=== PATIENT | male | born 1955 | race Caucasian/White ===

== ENCOUNTER 2019-04-11 15:32 | Observation (INO) | payer MEDICARE, MEDICAID ==
[2019-04-11] MEDS ORDERED: Sodium Chloride 0.9% 10 ML Syringe FLUSH PRN (15:44)
[2019-04-11] MEDS ORDERED: Atropine 0.1 MG/ML 10 ML Syringe IVPUSH PRN (15:53)
[2019-04-11] MEDS ORDERED: EPINEPHrine 1:10,000 1 MG/10 ML Syringe IVPUSH PRN (15:53)
[2019-04-11] MEDS ORDERED: Nitroglycerin 0.4 MG Tab.SL SL PRN (15:53)
[2019-04-11] MEDS ORDERED: Lidocaine 2% 100 MG/5 ML Syringe IVPUSH PRN (15:53)
[2019-04-11] MEDS ORDERED: Acetaminophen 500 MG Tab PO PRN (16:53)
[2019-04-11] MEDS ORDERED: traMADol 50 MG Tab PO PRN (16:53)
[2019-04-11] MEDS ORDERED: ClonazePAM 0.5 MG Tab PO PRN (16:53)
[2019-04-11] MEDS: atorvaSTATin 10 MG Tab PO SCH (20:33)
[2019-04-12 08:43] LABS: ANION GAP 15.3 mmol/L (5-15); CHLORIDE,CL 104 mmol/L (98-115); SODIUM,NA 139 mmol/L (136-145)
[2019-04-12] MEDS: ARIPiprazole 5 MG Tab PO SCH (09:13)
[2019-04-12] MEDS: Escitalopram 10 MG Tab PO SCH (09:14)
[2019-04-12] MEDS: Aspirin 81 MG Tab.EC PO SCH (09:14)
[2019-04-12] MEDS: metFORMIN 500 MG Tab PO SCH (09:14)
[2019-04-12] MEDS: Magnesium Hydroxide 400 MG/5 ML Susp 30 ML Cup PO PRN (09:26)
[2019-04-12 11:32] VITALS: BP 123/73
--- NOTE | 2019-04-12 11:46 | PCM.DCSUM1 ---
Discharge Summary - Hospital Course Free Text/Narrative:: Pt was admitted to the hospital with significant bradycardia, hypotension and hyperkalemia. He had BP of 110/64, heart rate 38-44 in the clinic while on hctz 12.5 mg daily , Metoprolol succinate 25 mg daily, amlodipine 10 mg daily, and lisinopril 40 mg daily. His antihypertensives were held and he was admitted to the hospital for observation. Since admission his heart rate has continued 44-51, BPs have been stable at 124 /64 with one reading of 94/67 at 7 am today. On discharge his BP was 123/73 with heart rate of 51. He denies any light headedness, dizziness, shortness of breath, palpitations, chest pain or edema. Hyperkalemia: Potassium was 5.9 on 04/10, 5.5 on 04/11. His lisinopril was held and K is now WNL at 4.7. Creatinine, GFR and BUN are all WNL on discharge. Pt has a history of anxiety and depression managed with abilify 5 mg daily, Clonazepam 0.5 mg at HS PRN and [id number] mg daily. He has arthritis and chronic low back pain managed with tramadol and meloxicam. Pt has hyperlipidemia managed with atorvastatin. Pt is to follow up in the clinic on Sunday, 04/15 for evaluation related to bradycardia, hypotension and hyperkalemia. His BPs were stable on discharge after being off of amlodipine, hctz, lisinopril and metoprolol for 24 hours. Potassium was WNL after being off of lisinopril 24 hours. He did not want to stay longer and was discharged with instructions for low potassium diet and to report any symptoms. Diagnosis: Stroke: No - Discharge Data Discharge Date: 04/12/19 Discharge Disposition: Home, Self-Care 01 Condition: Good - Discharge Diagnosis/Problem(s) (1) Hyperkalemia SNOMED Code(s): 65175421 ICD Code: E87.5 - HYPERKALEMIA Status: Acute Priority: Medium Current Visit: Yes - Patient Instructions Diet, Other: low potassium diet Activity: As Tolerated Driving: Do Not Drive Showering/Bathing: May Shower Other/Special Instructions: light headedness or dizziness - Discharge Plan *PRESCRIPTION DRUG MONITORING PROGRAM REVIEWED*: Yes (reviewed in Álvarez chart) *COPY OF PRESCRIPTION DRUG MONITORING REPORT IN PATIENT DASHA: No Home Medications: Home Meds ARIPiprazole [Abilify] 5 mg PO DAILY 04/11/19 [History] Acetaminophen 1,000 mg PO Q4HR PRN 04/11/19 [History] Aspirin [Halfprin] 81 mg PO DAILY 04/11/19 [History] ClonazePAM [KlonoPIN] 0.5 mg PO BEDTIME PRN 04/11/19 [History] Escitalopram [Lexapro] 20 mg PO DAILY 04/11/19 [History] Meloxicam [Mobic] 15 mg PO DAILY 04/11/19 [History] atorvaSTATin [Lipitor] 20 mg PO BEDTIME 04/11/19 [History] metFORMIN [Glucophage] 500 mg PO DAILY 04/11/19 [History] traMADol [Ultram] 50 mg PO Q6H PRN 04/11/19 [History] Patient Handouts: Hyperkalemia, [id number], Bradycardia, Adult Referrals: Eve Lancaster PA-C [Physician Staff Appraiser] - 04/15/19 (Return on Sunday to re evaluate re: antihypertensives and bradycardia) - Discharge Summary/Plan Comment DC Time >30 min.: Yes Discharge Summary/Plan Comment: Pt is to return to clinic on Sunday for re evaluation re: restarting his antihypertensive medications - General Info Date of Service: 04/12/19 Admission Dx/Problem (Free Text: bradycardia, hypokalemia, hypotension Subjective Update: Pt is anxious to go home. He states he is not doing anything here that he could not do at home. He denies light headedness, dizziness, shortness of breath, Chest pain, palpitations. ROS negative except low back pain. Functional Status: Reports: Pain Controlled (Chronic back pain managed with meloxicam and tramadol) - Review of Systems General: Reports: No Symptoms HEENT: Reports: No Symptoms Pulmonary: Reports: No Symptoms Cardiovascular: Reports: No Symptoms Gastrointestinal: Reports: No Symptoms Musculoskeletal: Reports: Back Pain (chronic, managed to pt's satisfaction) Psychiatric: Reports: No Symptoms - Patient Data Vitals - Most Recent: Last Vital Signs Temp 98.7 F 04/12/19 06:50 Pulse 47 L 04/12/19 06:50 Resp 20 04/12/19 06:50 BP 94/67 04/12/19 06:50 Pulse Ox 94 L 04/12/19 06:50 Weight - Most Recent: 197 lb 8 oz I&O - Last 24 hours: Intake & Output 04/11/19 04/12/19 04/12/19 22:59 06:59 14:59 Intake Total 1000 600 Balance 1000 600 Lab Results - Last 24 hrs: Laboratory Results - last 24 hr 04/11/19 04/11/19 04/12/19 Range/Units 16:05 16:05 07:40 WBC 9.24 (5.00-10.00) 10^3/uL RBC 3.97 L (4.50-6.00) 10^6/uL Hgb 14.0 (13.0-17.0) g/dL Hct 41.1 (40.0-52.0) % MCV 103.5 H (82.0-92.0) fL MCH 35.3 H (27.0-31.0) pg MCHC 34.1 (32.0-36.0) g/dL RDW 12.5 (11.5-14.5) % Plt Count 396 (150-400) 10^3/uL MPV 9.9 (7.4-10.4) fL Immature Gran % (Auto) 0.1 (0.0-5.0) % Neut % (Auto) 65.9 (50.0-70.0) % Lymph % (Auto) 21.9 (20.0-40.0) % [place] % (Auto) 7.0 (2.0-8.0) % Eos % (Auto) 4.7 H (1.0-3.0) % Baso % (Auto) 0.4 (0.0-1.0) % Immature Gran # (Auto) 0.01 (0.00-0.50) 10^3/uL Neut # (Auto) 6.09 (2.50-7.00) 10^3/uL Lymph # (Auto) 2.02 (1.00-4.00) 10^3/uL [place] # (Auto) 0.65 (0.10-0.80) 10^3/uL Eos # (Auto) 0.43 H (0.10-0.30) 10^3/uL Baso # (Auto) 0.04 (0.00-0.10) 10^3/uL Sodium 139 (136-145) mmol/L Potassium 4.7 (3.3-5.3) mmol/L Chloride 104 (98-115) mmol/L Carbon Dioxide 24.4 (21.0-32.0) mmol/L Anion Gap 15.3 H (5-15) mmol/L BUN 22 (6-25) mg/dL Creatinine 0.93 (0.51-1.17) mg/dL Est Cr Clr Drug Dosing 80.24 mL/min Estimated GFR (MDRD) > 60 mL/min Glucose 96 (75 - 99) mg/dL Calcium 8.9 (8.7-10.3) mg/dL Total Bilirubin 0.4 (0.2-1.0) mg/dL AST 24 (15-37) U/L ALT 41 (12-78) U/L Alkaline Phosphatase 137 H (46-116) IU/L Troponin I 0.04 (0.00-0.070) ng/mL Total Protein 6.9 (6.4-8.2) g/dL Albumin 3.66 (3.00-4.80) g/dL Med Orders - Current: Current Medications Acetaminophen (Tylenol Extra Strength) 1,000 mg PO Q4HR PRN PRN Reason: Pain Aripiprazole (Abilify) 5 mg PO DAILY [facility] Last Admin: 04/12/19 09:13 Dose: 5 mg Aspirin (Halfprin) 81 mg PO DAILY [facility] Last Admin: 04/12/19 09:14 Dose: 81 mg Atorvastatin Calcium (Lipitor) 20 mg PO BEDTIME [facility] Last Admin: 04/11/19 20:33 Dose: 20 mg Atropine Sulfate (Atropine 0.1 Mg/Ml) 0 mg IVPUSH ASDIRECTED PRN PRN Reason: Heart Clonazepam (Klonopin) 0.5 mg PO BEDTIME PRN PRN Reason: Anxiety Epinephrine HCl (Epinephrine 1:10,000) 1 mg IVPUSH ASDIRECTED PRN PRN Reason: Heart Escitalopram Oxalate (Lexapro) 20 mg PO DAILY [facility] Last Admin: 04/12/19 09:14 Dose: 20 mg Lidocaine HCl (Xylocaine 2%) 0 mg IVPUSH ASDIRECTED PRN PRN Reason: Heart Magnesium Hydroxide (Milk Of Magnesia) 30 ml PO BEDTIME PRN PRN Reason: Constipation Last Admin: 04/12/19 09:26 Dose: 30 ml Meloxicam (Mobic) 15 mg PO DAILY [facility] Last Admin: 04/12/19 09:14 Dose: 15 mg Metformin HCl (Glucophage) 500 mg PO DAILY [facility] Last Admin: 04/12/19 09:14 Dose: 500 mg Nitroglycerin (Nitrostat) 0.4 mg SL ASDIRECTED PRN PRN Reason: Heart Sodium Chloride (Saline Flush) 10 ml FLUSH Q8HR PRN PRN Reason: keep vein open Tramadol HCl (Ultram) 50 mg PO Q6H PRN PRN Reason: Pain - Exam General: Reports: Alert, Oriented, Cooperative, No Acute Distress Neck: Reports: Supple. Denies: Lymphadenopathy Lungs: Reports: Clear to Auscultation Cardiovascular: Reports: Regular Rhythm, Other (heart rate 48) GI/Abdominal Exam: Soft, Non-Tender Extremities: Normal Inspection, No Pedal Edema Psy/Mental Status: Reports: Alert, Normal Affect, Normal Mood
== END 2019-04-12 11:55 | disposition home or self-care (01) ==
LOC: KA.MS 15:32
PROVIDERS: ADMIT Physician Assistant Medical; ATTEND Nurse Practitioner Family
DX: I10 Essential (primary) hypertension (principal); R00.1 Bradycardia, unspecified; E87.5 Hyperkalemia; E78.5 Hyperlipidemia, unspecified; F41.8 Other specified anxiety disorders; M16.11 Unilateral primary osteoarthritis, right hip; M54.16 Radiculopathy, lumbar region; G89.29 Other chronic pain; Z79.82 Long term (current) use of aspirin; Z79.84 Long term (current) use of oral hypoglycemic drugs; Z79.1 Long term (current) use of non-steroidal anti-inflammatories (NSAID); Z79.899 Other long term (current) drug therapy; Z88.8 Allergy status to other drugs, medicaments and biological substances; Z87.891 Personal history of nicotine dependence; Z85.46 Personal history of malignant neoplasm of prostate
CPT/HCPCS: 36415; 80053; 84484; 85025; A9270-GY; G0378; G0379

== ENCOUNTER 2019-06-01 15:15 | Emergency (ER) | payer MEDICARE, MEDICAID ==
[2019-06-01] MEDS ORDERED: Sodium Chloride 0.9% 10 ML Syringe FLUSH PRN (15:26)
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
[2019-06-01] MEDS ORDERED: Sodium Chloride 0.9% 1,000 ML IV ONE (16:26)
[2019-06-01] MEDS ORDERED: Sodium Chloride 0.9% 1,000 ML ONE (16:28)
[2019-06-01 16:31] LABS: ANION GAP 14.6 mmol/L (5-15); CHLORIDE,CL 107 mmol/L (98-115); SODIUM,NA 144 mmol/L (136-145)
--- NOTE | 2019-06-01 16:56 | CR ---
[id number] RAD/RAD Lumbar Spine 2-3V Exam: RAD Lumbar Spine 2-3V Indication:LEG WEAKNESS, CHRONIC LUMBAR PROBLEMS. Comparison: No prior imaging for comparison. Discussion: Advanced changes of spondylosis with thoracic dextroconvexity. No acute findings. Impression: Advanced lumbar spondylosis. Gilbert Bar MD 06/01/19 [id number] Thank you for allowing us to participate in the care of your patient.
== END 2019-06-01 18:04 | disposition home or self-care (01) ==
LOC: KA.ED 15:15
DX: M51.36 Other intervertebral disc degeneration, lumbar region (principal); R29.91 Unspecified symptoms and signs involving the musculoskeletal system; E78.00 Pure hypercholesterolemia, unspecified; I10 Essential (primary) hypertension; F17.210 Nicotine dependence, cigarettes, uncomplicated; Z88.8 Allergy status to other drugs, medicaments and biological substances; Z79.899 Other long term (current) drug therapy; Z79.84 Long term (current) use of oral hypoglycemic drugs; Z95.4 Presence of other heart-valve replacement
CPT/HCPCS: 36415; 72100; 80053; 84443; 85025; 96360; 99285; J7030; 99284

== ENCOUNTER 2019-07-17 18:19 | Emergency (ER) | payer MEDICARE, MEDICAID ==
--- NOTE | 2019-07-17 18:59 | EDM.PDOC ---
ED HPI GENERAL MEDICAL PROBLEM - General Chief Complaint: General Stated Complaint: BACK PAIN, WEAKNESS Time Seen by Provider: 07/17/19 18:27 Source of Information: Reports: Patient, Provider (Dr. Mak ) History Limitations: Reports: No Limitations - History of Present Illness INITIAL COMMENTS - FREE TEXT/NARRATIVE: Patient presents with weakness in back and legs. He says this all started more than ten years ago. There was no injury or accident. He had an MRI back then and isn't aware of a diagnosis of MS. He recently had another MRI, and an EMG 2 -3 weeks ago. He is scheduled to see a neurologist in [place] in early July. Dr. Mak called with FYI that he was coming to ER and she had been told by their accounts receivable executive that patient was told, by Dr. Mckeon, to come today to clinic for check since he was having more rapid progression of his leg weakness. Closing time at clinic, so now coming to ER. 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 Patient tells me that the weakness has been progressing to the point that he needed a walker for ambulation starting 3 months ago. He thinks it has worsened a little over the last 6 weeks also. He tried PT 4-6 weeks ago but quit because it wasn't helping. - Related Data Allergies Allergy/AdvReac Type Severity Reaction Status Date / Time aspirin Allergy Rash Verified 06/01/19 15:28 Home Meds: Home Meds ARIPiprazole [Abilify] 5 mg PO DAILY 04/11/19 [History] Acetaminophen 1,000 mg PO Q4HR PRN 04/11/19 [History] Aspirin [Halfprin] 81 mg PO DAILY 04/11/19 [History] ClonazePAM [KlonoPIN] 0.5 mg PO BEDTIME PRN 04/11/19 [History] Escitalopram [Lexapro] 20 mg PO DAILY 04/11/19 [History] Meloxicam [Mobic] 15 mg PO DAILY 04/11/19 [History] atorvaSTATin [Lipitor] 20 mg PO BEDTIME 04/11/19 [History] metFORMIN [Glucophage] 500 mg PO DAILY 04/11/19 [History] traMADol [Ultram] 50 mg PO Q6H PRN 04/11/19 [History] amLODIPine Besylate [Amlodipine Besylate] 5 mg PO DAILY 06/01/19 [History] Past Medical History HEENT History: Reports: None Cardiovascular History: Reports: Arrhythmia, Heart Murmur, Heart Valve Replacement, High Cholesterol, Hypertension Gastrointestinal History: Reports: Chronic Constipation Genitourinary History: Reports: Prostate Disorder Psychiatric History: Reports: Anxiety, Depression, Emotional Problems, Panic Attack Oncologic (Cancer) History: Reports: Prostate - Infectious Disease History Infectious Disease History: Reports: Chicken Pox, Measles, Mumps - Past Surgical History HEENT Surgical History: Reports: Tonsillectomy Cardiovascular Surgical History: Reports: Valve Replacement GI Surgical History: Reports: Appendectomy, Colonoscopy Male Surgical History: Reports: Prostatectomy Social & Family History - Family History Family Medical History: Noncontributory - Caffeine Use Caffeine Use: Reports: Coffee, Soda ED ROS GENERAL - Review of Systems Review Of Systems: See Below Constitutional: Reports: Weakness (chronic bilat leg). Denies: Fever, Chills, Malaise, Diaphoresis HEENT: Reports: No Symptoms Respiratory: Denies: Shortness of Breath, Cough Cardiovascular: Reports: No Symptoms Endocrine: Reports: No Symptoms GI/Abdominal: Reports: No Symptoms : Reports: No Symptoms Musculoskeletal: Denies: Neck Pain, Shoulder Pain, Arm Pain Skin: Denies: Cyanosis, Jaundice, Mottled, Pallor, Diaphoresis Neurological: Reports: Difficulty Walking (chronic). Denies: Confusion, Dizziness, Headache, Numbness, Seizure, Syncope, Trouble Speaking Psychiatric: Denies: Agitation, Anxiety, Confusion ED EXAM, GENERAL - Physical Exam Exam: See Below Exam Limited By: No Limitations General Appearance: Alert, WD/WN, No Apparent Distress Eye Exam: Bilateral Eye: EOMI, Normal Inspection, PERRL Ears: Normal External Exam, Hearing Grossly Normal Nose: Normal Inspection, No Blood Throat/Mouth: Normal Inspection, Normal Lips, Normal Voice, No Airway Compromise Head: Atraumatic, Normocephalic Neck: Normal Inspection, Full Range of Motion Respiratory/Chest: No Respiratory Distress, Lungs Clear, Normal Breath Sounds, No Accessory Muscle Use Cardiovascular: Regular Rate, Rhythm, No Murmur Extremities: Normal Range of Motion, Non-Tender, Other (Left foot is 4/5 with plantar flexion and dorsiflexion; this has been chronic for the last ten years per patient.) Neurological: Alert, Oriented, Normal Cognition, No Motor/Sensory Deficits, Other (couldn't elicit bilat patellar reflexes) Psychiatric: Normal Affect, Normal Mood Skin Exam: Warm, Dry, Intact, Normal Color, No Rash Course - Re-Assessments/Exams Free Text/Narrative Re-Assessment/Exam: 07/17/19 19:18 Discussed findings with a call back to Dr. Mak since she had called to notify me of the patient coming. Since this is not acute, but chronic, will continue with the planned neuro appointment and follow up with Dr. Mckeon next week. Discussed findings and plan with patient. He isn't sure where the confusion occurred because he hasn't had an acute change he says. Patient stable at discharge and understands the plan as discussed. Departure - Departure Time of Disposition: 19:08 Disposition: Home, Self-Care 01 Condition: Good Clinical Impression: Leg weakness, bilateral - Discharge Information Referrals: Franco Holbrook MD [Primary Care Provider] - Additional Instructions: 1. Keep your appointment with Dr. Mckeon next week. 2. Make sure to see the neurologist in two weeks as scheduled. 3. If you notice acute worsening get rechecked either in clinic or ER [facility].
== END 2019-07-17 19:20 | disposition home or self-care (01) ==
LOC: KA.ED 18:19
DX: M62.81 Muscle weakness (generalized) (principal); F41.9 Anxiety disorder, unspecified; F32.9 Major depressive disorder, single episode, unspecified; E78.00 Pure hypercholesterolemia, unspecified; I10 Essential (primary) hypertension; Z88.6 Allergy status to analgesic agent; Z79.899 Other long term (current) drug therapy; Z79.82 Long term (current) use of aspirin
CPT/HCPCS: 99283

== ENCOUNTER 2019-08-15 08:54 | Inpatient (IN) | payer MEDICARE, MEDICAID ==
[2019-08-15] MEDS ORDERED: traMADol 50 MG Tab PO ONE (15:43)
[2019-08-15] MEDS: Acetaminophen 500 MG Tab PO PRN (20:01)
[2019-08-15] MEDS: atorvaSTATin 10 MG Tab PO SCH (20:19)
[2019-08-16] MEDS: traMADol 50 MG Tab PO PRN ×3 (00:44→20:23)
[2019-08-16] MEDS: Aspirin 81 MG Tab.EC PO SCH (08:55)
[2019-08-16] MEDS: Escitalopram 10 MG Tab PO SCH (08:56)
[2019-08-16] MEDS: amLODIPine 5 MG Tab PO SCH (08:57)
[2019-08-16] MEDS: metFORMIN 500 MG Tab PO SCH (08:58)
[2019-08-16] MEDS: ARIPiprazole 5 MG Tab PO SCH (08:58)
--- NOTE | 2019-08-16 12:32 | HP ---
HISTORY OF PRESENT ILLNESS: This is a 63-year-old gentleman who recently had surgery in [place], spinal fusion by Dr. Preston perez on 08/11/2019. The patient has rods in his back. He had a thoracic 10 pelvis fusion by Globus Robot performed. The patient is sent here for swing bed status for rehabilitation prior to going home. Today now, the patient states his pain is well controlled. He states he cannot get out of bed until Sunday. He does have a TLSO brace that he needs to wear when he is up. He has been eating well, he has no complaints of. PAST MEDICAL HISTORY: The patient has a long extensive spinal history. He does have a history of hypertension, mood disorder, hyperlipidemia, and diabetes mellitus type 2. PAST SURGICAL HISTORY: Would be lumbar fusion recently. MEDICATIONS: That he takes at home, takes 81 mg aspirin daily, Abilify 5 mg daily, metformin 500 mg daily, atorvastatin 20 mg daily, amlodipine 10 mg daily, Meloxicam 15 mg daily; Lexapro 20 mg daily; tramadol as needed twice a day; clonazepam as needed at bedtime 0.5 mg; and Tylenol as needed. ALLERGIES: He is allergic to, he says aspirin, but he takes it daily, has rash. SOCIAL/PERSONAL HISTORY: The patient does live in his house by himself. He is retired now. REVIEW OF SYSTEMS: CONSTITUTIONAL: No weight loss. No fever. No chills. No night sweats. Appetite is good. No fatigue. EYES: No recent visual changes. ENT: No sinus congestion or hoarseness. CARDIOVASCULAR: No chest pain or palpitations. RESPIRATORY: No cough. No shortness of breath. GI: No vomiting, diarrhea or melena. : No dysuria or hematuria. MUSCULOSKELETAL: Dressing to the patient's spine is dry and intact. No drainage noted. The patient is not having pain at this time. INTEGUMENTARY: No rash or pruritus. NEUROLOGIC/PSYCHIATRIC: No recent headache or focal weakness. No depressive symptoms. ENDOCRINE: No heat or cold intolerances or polydipsia. HEMATOLOGIC/LYMPHATIC: No excessive bruising or lymph node swelling. ALLERGIC/IMMUNOLOGIC: No hives or recurrent infections. PHYSICAL EXAMINATION: GENERAL: This is an elderly white male in no acute distress. VITAL SIGNS: Temperature is 97.3, pulse 73, blood pressure is 138/71, respiratory rate 16, oxygen saturations on room air is 95%. The patient's weight is 189 pounds. HEENT: Head is normocephalic. EOMs are intact. Pupils are equal, round, and reactive to light and accommodation. Bilateral tympanic membranes are intact. No drainage from his nose is noted. No pharyngeal erythema noted. NECK: Supple. No JVD. Trachea midline. LUNGS: Sounds are clear throughout lung mcqueen. CARDIAC: Regular rate and rhythm. No murmurs identified. ABDOMEN: Soft, nontender, nondistended. Bowel sounds present x4. EXTREMITIES: He does have range of motion to all of the extremities. No joint effusions noted. NEUROLOGICAL: The patient does complain of some numbness still to his left leg. DIAGNOSTIC: We have not obtained any lab work in the lab since he has been here. IMPRESSION/PLAN: 1. Recent spinal fusion performed by Dr. Garcia, back on 08/11/2019. Plan: We will keep the patient here on bed rest until Sunday when Physical Therapy will apply his back brace and get him up out of bed and start his physical therapy and rehabilitation. 2. Pain. The patient can have some Tylenol 1000 mg every 6 hours as needed for pain. He also is on meloxicam 15 mg daily scheduled. He can have some tramadol 50 mg twice a day as needed for pain. 3. History of hypertension. Plan: Continue with amlodipine 10 mg daily. 4. History of mood disorder. Plan: Continue the patient on Abilify 5 mg daily along with Lexapro 20 mg daily. The patient can have some clonazepam 0.5 mg at bedtime as needed for sleep. 5. History of hyperlipidemia. Plan: Continue with atorvastatin 20 mg daily. 6. History of borderline diabetes mellitus. Plan: Continue the patient on metformin 500 mg just daily. We do have him on an ADA diet. We are not checking his blood sugars at this time. /[id number]/MODL MTDD
[2019-08-16] MEDS: Acetaminophen 500 MG Tab PO PRN (16:04)
[2019-08-16] MEDS: atorvaSTATin 10 MG Tab PO SCH (20:17)
[2019-08-17] MEDS: Acetaminophen 500 MG Tab PO PRN (03:29)
[2019-08-17] MEDS: Aspirin 81 MG Tab.EC PO SCH (09:18)
[2019-08-17] MEDS: amLODIPine 5 MG Tab PO SCH (09:18)
[2019-08-17] MEDS: Escitalopram 10 MG Tab PO SCH (09:19)
[2019-08-17] MEDS: traMADol 50 MG Tab PO PRN (09:19)
[2019-08-17] MEDS: metFORMIN 500 MG Tab PO SCH (09:19)
[2019-08-17] MEDS: ARIPiprazole 5 MG Tab PO SCH (10:16)
[2019-08-17] MEDS: Acetaminophen/HYDROcodone 325-5 MG Tab PO PRN ×3 (11:05→19:50)
[2019-08-17] MEDS: atorvaSTATin 10 MG Tab PO SCH (20:14)
[2019-08-18] MEDS: Acetaminophen/HYDROcodone 325-5 MG Tab PO PRN ×3 (03:49→20:40)
[2019-08-18] MEDS: Escitalopram 10 MG Tab PO SCH (08:36)
[2019-08-18] MEDS: Aspirin 81 MG Tab.EC PO SCH (08:36)
[2019-08-18] MEDS: metFORMIN 500 MG Tab PO SCH (08:37)
[2019-08-18] MEDS: amLODIPine 5 MG Tab PO SCH (08:37)
[2019-08-18] MEDS: ARIPiprazole 5 MG Tab PO SCH (08:37)
[2019-08-18] MEDS: atorvaSTATin 10 MG Tab PO SCH (20:39)
[2019-08-18] MEDS: ClonazePAM 0.5 MG Tab PO PRN (20:41)
[2019-08-19] MEDS: Magnesium Hydroxide 400 MG/5 ML Susp 30 ML Cup PO PRN (06:39)
[2019-08-19] MEDS: Acetaminophen/HYDROcodone 325-5 MG Tab PO PRN ×2 (06:42→17:40)
[2019-08-19] MEDS: amLODIPine 5 MG Tab PO SCH (08:28)
[2019-08-19] MEDS: Escitalopram 10 MG Tab PO SCH (08:28)
[2019-08-19] MEDS: Aspirin 81 MG Tab.EC PO SCH (08:28)
[2019-08-19] MEDS: ARIPiprazole 5 MG Tab PO SCH (08:28)
[2019-08-19] MEDS: metFORMIN 500 MG Tab PO SCH (08:29)
[2019-08-19] MEDS: ClonazePAM 0.5 MG Tab PO PRN (20:23)
[2019-08-19] MEDS: atorvaSTATin 10 MG Tab PO SCH (20:23)
[2019-08-20] MEDS: Escitalopram 10 MG Tab PO SCH (08:34)
[2019-08-20] MEDS: ARIPiprazole 5 MG Tab PO SCH (08:34)
[2019-08-20] MEDS: metFORMIN 500 MG Tab PO SCH (08:34)
[2019-08-20] MEDS: Aspirin 81 MG Tab.EC PO SCH (08:34)
[2019-08-20] MEDS: amLODIPine 5 MG Tab PO SCH (08:35)
[2019-08-20] MEDS: Acetaminophen/HYDROcodone 325-5 MG Tab PO PRN ×2 (09:57→20:20)
[2019-08-20] MEDS: atorvaSTATin 10 MG Tab PO SCH (20:19)
[2019-08-20] MEDS: ClonazePAM 0.5 MG Tab PO PRN (20:19)
[2019-08-21] MEDS: ARIPiprazole 5 MG Tab PO SCH (08:26)
[2019-08-21] MEDS: Aspirin 81 MG Tab.EC PO SCH (08:26)
[2019-08-21] MEDS: metFORMIN 500 MG Tab PO SCH (08:26)
[2019-08-21] MEDS: Escitalopram 10 MG Tab PO SCH (08:27)
[2019-08-21] MEDS: amLODIPine 5 MG Tab PO SCH (10:00)
[2019-08-21] MEDS: atorvaSTATin 10 MG Tab PO SCH (21:58)
[2019-08-21] MEDS: ClonazePAM 0.5 MG Tab PO PRN (21:59)
[2019-08-21] MEDS: Acetaminophen/HYDROcodone 325-5 MG Tab PO PRN (21:59)
[2019-08-22] MEDS: Aspirin 81 MG Tab.EC PO SCH (09:21)
[2019-08-22] MEDS: amLODIPine 5 MG Tab PO SCH (09:21)
[2019-08-22] MEDS: metFORMIN 500 MG Tab PO SCH (09:21)
[2019-08-22] MEDS: ARIPiprazole 5 MG Tab PO SCH (09:22)
[2019-08-22] MEDS: Escitalopram 10 MG Tab PO SCH (09:22)
[2019-08-22] MEDS: Acetaminophen/HYDROcodone 325-5 MG Tab PO PRN ×2 (10:54→20:12)
[2019-08-22] MEDS: atorvaSTATin 10 MG Tab PO SCH (20:12)
[2019-08-22] MEDS: ClonazePAM 0.5 MG Tab PO PRN (20:14)
[2019-08-23] MEDS: ARIPiprazole 5 MG Tab PO SCH (09:25)
[2019-08-23] MEDS: Aspirin 81 MG Tab.EC PO SCH (09:26)
[2019-08-23] MEDS: amLODIPine 5 MG Tab PO SCH (09:26)
[2019-08-23] MEDS: Escitalopram 10 MG Tab PO SCH (09:26)
[2019-08-23] MEDS: metFORMIN 500 MG Tab PO SCH (09:26)
[2019-08-23] MEDS: ClonazePAM 0.5 MG Tab PO PRN (21:02)
[2019-08-23] MEDS: atorvaSTATin 10 MG Tab PO SCH (21:02)
[2019-08-24] MEDS: Aspirin 81 MG Tab.EC PO SCH (08:41)
[2019-08-24] MEDS: Escitalopram 10 MG Tab PO SCH (08:41)
[2019-08-24] MEDS: metFORMIN 500 MG Tab PO SCH (08:42)
[2019-08-24] MEDS: amLODIPine 5 MG Tab PO SCH (08:42)
[2019-08-24] MEDS: ARIPiprazole 5 MG Tab PO SCH (08:42)
[2019-08-24] MEDS: ClonazePAM 0.5 MG Tab PO PRN (21:03)
[2019-08-24] MEDS: atorvaSTATin 10 MG Tab PO SCH (21:03)
[2019-08-25] MEDS: ARIPiprazole 5 MG Tab PO SCH (09:14)
[2019-08-25] MEDS: metFORMIN 500 MG Tab PO SCH (09:14)
[2019-08-25] MEDS: Escitalopram 10 MG Tab PO SCH (09:14)
[2019-08-25] MEDS: Aspirin 81 MG Tab.EC PO SCH (09:14)
[2019-08-25] MEDS: amLODIPine 5 MG Tab PO SCH (09:14)
--- NOTE | 2019-08-25 09:58 | PCM.SN ---
- Free Text/Narrative Note: approximate 30 of 85 stables removed this morning without wound dehiscence. Will plan on removin some each day. serous drainage only. No signs of infection. Approximating well. Patient tolerated procedure well.
[2019-08-25] MEDS ORDERED: Sodium Chloride 0.65% Nasal Spray 45 ML Bottle NAS PRN (13:01)
[2019-08-25] MEDS: Acetaminophen/HYDROcodone 325-5 MG Tab PO PRN ×2 (13:39→21:41)
[2019-08-25] MEDS: atorvaSTATin 10 MG Tab PO SCH (21:40)
[2019-08-25] MEDS: ClonazePAM 0.5 MG Tab PO PRN (21:41)
[2019-08-26] MEDS: Aspirin 81 MG Tab.EC PO SCH (08:38)
[2019-08-26] MEDS: ARIPiprazole 5 MG Tab PO SCH (08:38)
[2019-08-26] MEDS: metFORMIN 500 MG Tab PO SCH (08:38)
[2019-08-26] MEDS: Escitalopram 10 MG Tab PO SCH (08:38)
[2019-08-26] MEDS: amLODIPine 5 MG Tab PO SCH (08:38)
[2019-08-26] MEDS: Acetaminophen/HYDROcodone 325-5 MG Tab PO PRN (12:01)
[2019-08-26] MEDS: ClonazePAM 0.5 MG Tab PO PRN (21:00)
[2019-08-26] MEDS: atorvaSTATin 10 MG Tab PO SCH (21:00)
[2019-08-27] MEDS: metFORMIN 500 MG Tab PO SCH (08:39)
[2019-08-27] MEDS: Aspirin 81 MG Tab.EC PO SCH (08:39)
[2019-08-27] MEDS: Escitalopram 10 MG Tab PO SCH (08:39)
[2019-08-27] MEDS: ARIPiprazole 5 MG Tab PO SCH (08:39)
[2019-08-27] MEDS: amLODIPine 5 MG Tab PO SCH (08:39)
--- NOTE | 2019-08-27 10:15 | PCM.SN ---
- Free Text/Narrative Note: rounded on pat this morning, all louis removed, Steri-Strips applied, no drainage this morning however nurses reported yesterday patient had significant drainage serosanguine with some ordor, cx taken, normal white count. we will assess and trend ESR
[2019-08-27] MEDS: Acetaminophen/HYDROcodone 325-5 MG Tab PO PRN (12:53)
[2019-08-27] MEDS: atorvaSTATin 10 MG Tab PO SCH (20:46)
[2019-08-28] MEDS: ClonazePAM 0.5 MG Tab PO PRN ×2 (01:36→21:26)
[2019-08-28] MEDS: Escitalopram 10 MG Tab PO SCH (08:39)
[2019-08-28] MEDS: Aspirin 81 MG Tab.EC PO SCH (08:39)
[2019-08-28] MEDS: ARIPiprazole 5 MG Tab PO SCH (08:39)
[2019-08-28] MEDS: metFORMIN 500 MG Tab PO SCH (08:39)
[2019-08-28] MEDS: amLODIPine 5 MG Tab PO SCH (08:40)
[2019-08-28] MEDS: Acetaminophen/HYDROcodone 325-5 MG Tab PO PRN ×2 (12:10→21:24)
[2019-08-28] MEDS: atorvaSTATin 10 MG Tab PO SCH (21:10)
[2019-08-29] MEDS: amLODIPine 5 MG Tab PO SCH (08:56)
[2019-08-29] MEDS: Escitalopram 10 MG Tab PO SCH (08:56)
[2019-08-29] MEDS: Aspirin 81 MG Tab.EC PO SCH (08:57)
[2019-08-29] MEDS: ARIPiprazole 5 MG Tab PO SCH (08:57)
[2019-08-29] MEDS: metFORMIN 500 MG Tab PO SCH (08:57)
[2019-08-29] MEDS: Acetaminophen/HYDROcodone 325-5 MG Tab PO PRN ×2 (12:50→21:23)
[2019-08-29] MEDS: atorvaSTATin 10 MG Tab PO SCH (21:22)
[2019-08-29] MEDS: ClonazePAM 0.5 MG Tab PO PRN (21:25)
[2019-08-30] MEDS: metFORMIN 500 MG Tab PO SCH (08:37)
[2019-08-30] MEDS: amLODIPine 5 MG Tab PO SCH (08:37)
[2019-08-30] MEDS: Escitalopram 10 MG Tab PO SCH (08:37)
[2019-08-30] MEDS: ARIPiprazole 5 MG Tab PO SCH (08:37)
[2019-08-30] MEDS: Aspirin 81 MG Tab.EC PO SCH (08:38)
[2019-08-30] MEDS: atorvaSTATin 10 MG Tab PO SCH (20:54)
[2019-08-30] MEDS: ClonazePAM 0.5 MG Tab PO PRN (20:55)
[2019-08-30] MEDS: Acetaminophen/HYDROcodone 325-5 MG Tab PO PRN (20:55)
[2019-08-31] MEDS: Aspirin 81 MG Tab.EC PO SCH (09:30)
[2019-08-31] MEDS: amLODIPine 5 MG Tab PO SCH (09:31)
[2019-08-31] MEDS: Escitalopram 10 MG Tab PO SCH (09:33)
[2019-08-31] MEDS: metFORMIN 500 MG Tab PO SCH (09:33)
[2019-08-31] MEDS: ARIPiprazole 5 MG Tab PO SCH (09:34)
--- NOTE | 2019-08-31 14:37 | PCM.SN ---
- Free Text/Narrative Note: Nursing staff reports concerns of fluid collection beneath the incisional site. The patient had previously been having large amounts of serosanguineous drainage from incisional site. Cotton have all been removed and steri-strips in placed. Given concerns of increased drainage a wound culture was collected on 08/26/19 and microbiology showed basic micro edgardo. He has had no further drainage from the incisional site since 08/28/19 but today has localized subcutaneous fluid collection. Patient was seen on rounds to further evaluation. There is a localized, soft, fluid-filled collection to the inferior portion of surgical incision measuring 9cm across. There is no erythema or warmth. Patient denies any increased pain. He is afebrile. The incision is healing well and edges are approximated with steri-strips in place. History and exam most consistent with seroma. Margins marked with skin marker. Pictures taken. Will continue to monitor.
[2019-08-31] MEDS: atorvaSTATin 10 MG Tab PO SCH (20:02)
[2019-08-31] MEDS: Acetaminophen/HYDROcodone 325-5 MG Tab PO PRN (23:49)
[2019-08-31] MEDS: ClonazePAM 0.5 MG Tab PO PRN (23:49)
[2019-09-01] MEDS: ARIPiprazole 5 MG Tab PO SCH (08:25)
[2019-09-01] MEDS: metFORMIN 500 MG Tab PO SCH (08:26)
[2019-09-01] MEDS: Escitalopram 10 MG Tab PO SCH (08:26)
[2019-09-01] MEDS: Aspirin 81 MG Tab.EC PO SCH (08:27)
[2019-09-01] MEDS: amLODIPine 5 MG Tab PO SCH (08:27)
[2019-09-01] MEDS: atorvaSTATin 10 MG Tab PO SCH (21:27)
[2019-09-02] MEDS: Acetaminophen/HYDROcodone 325-5 MG Tab PO PRN ×3 (00:13→21:43)
[2019-09-02] MEDS: ClonazePAM 0.5 MG Tab PO PRN ×2 (00:13→21:42)
[2019-09-02] MEDS: metFORMIN 500 MG Tab PO SCH (08:33)
[2019-09-02] MEDS: ARIPiprazole 5 MG Tab PO SCH (08:33)
[2019-09-02] MEDS: Escitalopram 10 MG Tab PO SCH (08:33)
[2019-09-02] MEDS: amLODIPine 5 MG Tab PO SCH (08:33)
[2019-09-02] MEDS: Aspirin 81 MG Tab.EC PO SCH (08:33)
[2019-09-02] MEDS: atorvaSTATin 10 MG Tab PO SCH (21:42)
[2019-09-03] MEDS: ARIPiprazole 5 MG Tab PO SCH (08:30)
[2019-09-03] MEDS: metFORMIN 500 MG Tab PO SCH (08:30)
[2019-09-03] MEDS: amLODIPine 5 MG Tab PO SCH (08:31)
[2019-09-03] MEDS: Escitalopram 10 MG Tab PO SCH (08:31)
[2019-09-03] MEDS: Aspirin 81 MG Tab.EC PO SCH (08:32)
--- NOTE | 2019-09-03 14:07 | US ---
[id number] US/US Abdomen Limited Exam: US Abdomen Limited Indication:SEROMA. Comparison: No prior imaging for comparison. Discussion: Anechoic structure in the subcutaneous soft tissues at the incision site. Findings are most consistent with postoperative seroma in the setting of prior surgery. Collection measures 16 x 37 x 19 mm. Lack of internal complexity makes resolving hematoma is unlikely. No hyperemia or complexity makes abscess also unlikely. Impression: Findings most consistent with postoperative seroma at the incision site described above. Gilbert Bar MD 09/03/19 2613 Thank you for allowing us to participate in the care of your patient.
[2019-09-03] MEDS ORDERED: FLU Vacc QS2019-20(6MOS+)/PF 60 MCG/0.5 ML SYRINGE IM ONE (14:39)
[2019-09-03] MEDS: atorvaSTATin 10 MG Tab PO SCH (21:14)
[2019-09-03] MEDS: Acetaminophen/HYDROcodone 325-5 MG Tab PO PRN (21:15)
[2019-09-03] MEDS: ClonazePAM 0.5 MG Tab PO PRN (21:16)
[2019-09-04] MEDS: Aspirin 81 MG Tab.EC PO SCH (08:32)
[2019-09-04] MEDS: Escitalopram 10 MG Tab PO SCH (08:32)
[2019-09-04] MEDS: ARIPiprazole 5 MG Tab PO SCH (08:32)
[2019-09-04] MEDS: metFORMIN 500 MG Tab PO SCH (08:32)
[2019-09-04] MEDS: Magnesium Hydroxide 400 MG/5 ML Susp 30 ML Cup PO PRN (08:35)
[2019-09-04] MEDS: amLODIPine 5 MG Tab PO SCH (08:35)
[2019-09-04] MEDS: Acetaminophen/HYDROcodone 325-5 MG Tab PO PRN ×2 (14:00→20:32)
[2019-09-04] MEDS: atorvaSTATin 10 MG Tab PO SCH (20:31)
[2019-09-04] MEDS: ClonazePAM 0.5 MG Tab PO PRN (20:32)
--- NOTE | 2019-09-05 09:20 | PCM.PRNOTE ---
- Free Text/Narrative Note: Patient has had ongoing concerns with fluid collection behind incisional surgical site with periodic spontaneous serosanguineous drainage drainage through staple ports. No wound dehiscence. Wound cultures have been negative and no growth. No fever. Hunter were removed over the course of 3 days without complications. Steri-Strips applied and intact. Ultrasound demonstrates 16 x 37 x 19 mm anechoic area consistent with seroma. Images and report sent to surgical team [facility] with their recommendations of drainage. Procedure note Written consent obtained from patient Patient was prepped sterilely with iodine 0.5 mL's lidocaine with epinephrine localize 30 mL of reddish-brown thin liquid removed without complication Fluid and was sent to lab Pressure bandage applied Patient tolerated procedure well CBC, BMP, ESR today
[2019-09-05] MEDS: metFORMIN 500 MG Tab PO SCH (09:24)
[2019-09-05] MEDS: Aspirin 81 MG Tab.EC PO SCH (09:24)
[2019-09-05] MEDS: Escitalopram 10 MG Tab PO SCH (09:24)
[2019-09-05] MEDS: ARIPiprazole 5 MG Tab PO SCH (09:25)
[2019-09-05] MEDS: Acetaminophen/HYDROcodone 325-5 MG Tab PO PRN ×2 (09:25→20:28)
[2019-09-05] MEDS: amLODIPine 5 MG Tab PO SCH (09:25)
[2019-09-05 10:02] LABS: ANION GAP 13.5 mmol/L (5-15); CHLORIDE,CL 102 mmol/L (98-115); SODIUM,NA 138 mmol/L (136-145)
[2019-09-05] MEDS ORDERED: Lidocaine 1% with EPINEPHrine 1:100,000 20 ML MDV INJECT ONE (10:24)
[2019-09-05] MEDS: ClonazePAM 0.5 MG Tab PO PRN (20:30)
[2019-09-05] MEDS: atorvaSTATin 10 MG Tab PO SCH (20:30)
[2019-09-06] MEDS: Magnesium Hydroxide 400 MG/5 ML Susp 30 ML Cup PO PRN (05:59)
[2019-09-06] MEDS: amLODIPine 5 MG Tab PO SCH (08:21)
[2019-09-06] MEDS: metFORMIN 500 MG Tab PO SCH (08:22)
[2019-09-06] MEDS: ARIPiprazole 5 MG Tab PO SCH (08:22)
[2019-09-06] MEDS: Aspirin 81 MG Tab.EC PO SCH (08:22)
[2019-09-06] MEDS: Escitalopram 10 MG Tab PO SCH (08:23)
[2019-09-06] MEDS: Acetaminophen/HYDROcodone 325-5 MG Tab PO PRN (20:42)
[2019-09-06] MEDS: atorvaSTATin 10 MG Tab PO SCH (20:44)
[2019-09-06] MEDS: ClonazePAM 0.5 MG Tab PO PRN (20:44)
[2019-09-06] MEDS: Bisacodyl 5 MG Tab PO PRN (22:07)
[2019-09-07] MEDS: ARIPiprazole 5 MG Tab PO SCH (08:18)
[2019-09-07] MEDS: Aspirin 81 MG Tab.EC PO SCH (08:18)
[2019-09-07] MEDS: Escitalopram 10 MG Tab PO SCH (08:18)
[2019-09-07] MEDS: amLODIPine 5 MG Tab PO SCH (08:18)
[2019-09-07] MEDS: Magnesium Hydroxide 400 MG/5 ML Susp 30 ML Cup PO PRN (08:19)
[2019-09-07] MEDS: metFORMIN 500 MG Tab PO SCH (08:19)
[2019-09-07] MEDS: atorvaSTATin 10 MG Tab PO SCH (21:26)
[2019-09-07] MEDS: Acetaminophen/HYDROcodone 325-5 MG Tab PO PRN (21:26)
[2019-09-07] MEDS: ClonazePAM 0.5 MG Tab PO PRN (21:26)
[2019-09-08] MEDS: amLODIPine 5 MG Tab PO SCH (08:34)
[2019-09-08] MEDS: ARIPiprazole 5 MG Tab PO SCH (08:35)
[2019-09-08] MEDS: Escitalopram 10 MG Tab PO SCH (08:35)
[2019-09-08] MEDS: metFORMIN 500 MG Tab PO SCH (08:35)
[2019-09-08] MEDS: Aspirin 81 MG Tab.EC PO SCH (08:36)
[2019-09-08] MEDS: Magnesium Hydroxide 400 MG/5 ML Susp 30 ML Cup PO PRN (08:38)
[2019-09-08] MEDS: atorvaSTATin 10 MG Tab PO SCH (20:39)
[2019-09-08] MEDS: ClonazePAM 0.5 MG Tab PO PRN (20:39)
[2019-09-08] MEDS: Acetaminophen/HYDROcodone 325-5 MG Tab PO PRN (20:39)
[2019-09-09 08:32] LABS: ANION GAP 13.3 mmol/L (5-15); CHLORIDE,CL 99 mmol/L (98-115); SODIUM,NA 133 mmol/L (136-145)
--- NOTE | 2019-09-09 09:31 | CR ---
[id number] RAD/RAD Chest PA or AP 1V EXAM: RAD Chest PA or AP 1V INDICATION: FEVER. COMPARISON: July 01, 2009. DISCUSSION: Cardiomediastinal silhouette is normal in size and contour. No infiltrate, effusion, pneumothorax, or edema. Low lung volumes associated vascular crowding. Contreras rods are identified. IMPRESSION: No acute cardiopulmonary abnormality. Isidro Su DO 09/09/19 0930 Thank you for allowing us to participate in the care of your patient.
[2019-09-09] MEDS ORDERED: cefTRIAXone 1 GM Vial IM ONE (10:26)
[2019-09-09] MEDS: Escitalopram 10 MG Tab PO SCH (11:10)
[2019-09-09] MEDS: ARIPiprazole 5 MG Tab PO SCH (11:10)
[2019-09-09] MEDS: Aspirin 81 MG Tab.EC PO SCH (11:11)
[2019-09-09] MEDS: metFORMIN 500 MG Tab PO SCH (11:11)
--- NOTE | 2019-09-09 11:12 | PCM.PN ---
- General Info Date of Service: 09/09/19 Functional Status: Reports: Pain Controlled, Tolerating Diet, Ambulating, Urinating, New Symptoms (slight diaphoresis) - Review of Systems General: Reports: Fever, Chills, Appetite. Denies: Weakness, Fatigue, Malaise, Night Sweats HEENT: Reports: No Symptoms Pulmonary: Reports: No Symptoms Cardiovascular: Reports: No Symptoms Gastrointestinal: Reports: No Symptoms Genitourinary: Denies: Frequency, Burning, Pain, Urgency Musculoskeletal: Reports: No Symptoms Skin: Reports: No Symptoms Neurological: Reports: No Symptoms, Pre-Existing Deficit, Difficulty Walking, Weakness Psychiatric: Reports: No Symptoms - Patient Data Vitals - Most Recent: Last Vital Signs Temp 101.2 F H 09/09/19 07:15 Pulse 82 09/09/19 06:32 Resp 18 09/09/19 06:32 BP 143/75 H 09/09/19 06:32 Pulse Ox 96 09/09/19 06:32 Weight - Most Recent: 177 lb 7 oz I&O - Last 24 Hours: Intake & Output 09/08/19 09/09/19 09/09/19 22:59 06:59 14:59 Intake Total 500 200 Balance 500 200 Lab Results Last 24 Hours: Laboratory Results - last 24 hr 09/09/19 09/09/19 Range/Units 08:00 08:00 WBC 16.06 H (5.00-10.00) 10^3/uL RBC 3.33 L (4.50-6.00) 10^6/uL Hgb 11.4 L (13.0-17.0) g/dL Hct 34.2 L (40.0-52.0) % MCV 102.7 H (82.0-92.0) fL MCH 34.2 H (27.0-31.0) pg MCHC 33.3 (32.0-36.0) g/dL RDW 12.4 (11.5-14.5) % RDW Coeff of Shane 12.4 Plt Count 340 (150-400) 10^3/uL MPV 9.1 (7.4-10.4) fL Neutrophils % (Manual) 85 H (50-70) % Band Neutrophils % 1 L (4-12) % Lymphocytes % (Manual) 6 L (20-40) % Monocytes % (Manual) 8 (2-8) % Absolute Neutrophils 13.65 Band Neutrophils # 0.16 Lymphocytes # (Manual) 0.96 Monocytes # (Manual) 1.28 ESR 85 H (0-15) mm/hr Sodium 133 L (136-145) mmol/L Potassium 4.3 (3.3-5.3) mmol/L Chloride 99 (98-115) mmol/L Carbon Dioxide 25.0 (21.0-32.0) mmol/L Anion Gap 13.3 (5-15) mmol/L BUN 9 (6-25) mg/dL Creatinine 0.77 (0.51-1.17) mg/dL Est Cr Clr Drug Dosing 96.92 mL/min Estimated GFR (MDRD) > 60 mL/min Glucose 93 (75 - 99) mg/dL Calcium 9.2 (8.7-10.3) mg/dL Med Orders - Current: Current Medications Acetaminophen (Tylenol Extra Strength) 1,000 mg PO Q4HR PRN PRN Reason: Pain Last Admin: 08/17/19 03:29 Dose: 1,000 mg Hydrocodone Bitart/Acetaminophen (Perry 325-5 Mg) 1 tab PO Q4H PRN PRN Reason: Pain (severe 7-10) Last Admin: 09/08/19 20:39 Dose: 1 tab Amlodipine Besylate (Norvasc) 5 mg PO DAILY COUNT INCLUDES THE [facility] Last Admin: 09/08/19 08:34 Dose: 5 mg Aripiprazole (Abilify) 5 mg PO DAILY COUNT INCLUDES THE [facility] Last Admin: 09/08/19 08:35 Dose: 5 mg Aspirin (Halfprin) 81 mg PO DAILY COUNT INCLUDES THE [facility] Last Admin: 09/08/19 08:36 Dose: 81 mg Atorvastatin Calcium (Lipitor) 20 mg PO BEDTIME JIMMIE Last Admin: 09/08/19 20:39 Dose: 20 mg Bisacodyl (Dulcolax) 5 - 10 mg PO DAILY PRN PRN Reason: Constipation Last Admin: 09/06/19 22:07 Dose: 5 mg Clonazepam (Klonopin) 0.5 mg PO BEDTIME PRN PRN Reason: Anxiety Last Admin: 09/08/19 20:39 Dose: 0.5 mg Escitalopram Oxalate (Lexapro) 20 mg PO DAILY COUNT INCLUDES THE [facility] Last Admin: 09/08/19 08:35 Dose: 20 mg Magnesium Hydroxide (Milk Of Magnesia) 30 ml PO DAILY PRN PRN Reason: Constipation Last Admin: 09/08/19 08:38 Dose: 30 ml Meloxicam (Mobic) 15 mg PO DAILY COUNT INCLUDES THE [facility] Last Admin: 09/08/19 08:35 Dose: 15 mg Metformin HCl (Glucophage) 500 mg PO DAILY COUNT INCLUDES THE [facility] Last Admin: 09/08/19 08:35 Dose: 500 mg Senna/Docusate Sodium (Senna Plus) 1 tab PO BID COUNT INCLUDES THE [facility] Last Admin: 09/08/19 20:39 Dose: 1 tab Sodium Chloride (Sagar Nasal [place]) 0 ml JERRICA QID PRN PRN Reason: Nasal Dryness Last Admin: 08/25/19 21:43 Dose: 1 spray Discontinued Medications Amlodipine Besylate (Norvasc) 10 mg PO DAILY COUNT INCLUDES THE [facility] Last Admin: 08/21/19 10:00 Dose: Not Given Ceftriaxone Sodium (Rocephin) 1 gm IM DAILY ONE Stop: 09/09/19 10:27 Influenza Virus Vaccine (Fluzone Quad Syringe) 60 mcg IM .ONCE ONE Stop: 09/03/19 14:40 Last Admin: 09/03/19 14:44 Dose: 60 mcg Lidocaine/Epinephrine (Xylocaine 1% With Epinephrine 1:100,000) 1 ml INJECT ONETIME ONE Stop: 09/05/19 10:25 Last Admin: 09/05/19 08:30 Dose: 1 ml Tramadol HCl (Ultram) 50 mg PO ONETIME ONE Stop: 08/15/19 15:44 Last Admin: 08/15/19 15:56 Dose: 50 mg Tramadol HCl (Ultram) 50 mg PO BID PRN PRN Reason: Pain Last Admin: 08/17/19 09:19 Dose: 50 mg - Exam Quality Assessment: No: Supplemental Oxygen General: Alert, Oriented, Cooperative, No Acute Distress Neck: Supple Lungs: Clear to Auscultation, Normal Respiratory Effort Cardiovascular: Regular Rate, Regular Rhythm GI/Abdominal Exam: Normal Bowel Sounds, Soft, Non-Tender, No Distention. No: Distended (Male) Exam: No: Inguinal Lymphadenopathy Back Exam: No: CVA Tenderness (L), CVA Tenderness (R) Extremities: No Pedal Edema Peripheral Pulses: 2+: Radial (L), Radial (R) Skin: Dry, Intact, Cool. No: Rash Wound/Incisions: Healing Well, Other (repeated seroma develent inferior wound lumbar sacral). No: Erythema Neurological: Cranial Nerves Intact Psy/Mental Status: Alert, Normal Affect, Normal Mood - Problem List Review Problem List Initiated/Reviewed/Updated: Yes - My Orders Last 24 Hours: My Active Orders 09/09/19 08:00 CULTURE BLOOD [BC] Routine 09/09/19 08:17 CULTURE BLOOD [BC] Routine - Plan Plan:: brief history summary 63-year-old gentleman who is in SNF/rehabilitation here at [facility] status post spinal fusion DOS 08/[address] Preston Garcia, ongoing TLSO brace has been having spontaneous intermittent seroma development inferior wound. no wound dehiscence. update today This morning nurses reported fever 101.2 with slight diaphoresis--no other symptoms such as cough, dysuria, willard, abdominal pain, N/V/D or URI-type symptoms. CBC 16,000/neutrophilia chest x-ray no acute process rising ESR UA cx 09/03 Patient has had ongoing concerns with fluid collection behind incisional surgical site with periodic spontaneous serosanguineous drainage drainage through staple ports. No wound dehiscence. Wound cultures have been negative and no growth. No fever. Ariadna were removed over the course of 3 days without complications. Steri-Strips applied and intact. Ultrasound demonstrates 16 x 37 x 19 mm anechoic area consistent with seroma. Images and report sent to surgical team [facility] Dr Hutotn with recommendations of drainage: 30 mL of reddish-brown thin Fluid sent To lab, no growth to date. 09/09 Repeat serial tap of fluid Procedure note Written consent obtained from patient Patient was prepped sterilely with Chloraprep 0.5 mL's lidocaine with epinephrine localize 30 mL of reddish-brown thin liquid removed without complication, sent to lab Pressure bandage applied Patient tolerated procedure well Primary SNF problems Fever/leukoctosis unknown etiology Wound seroma, may need serial tap Secondarystable problems Hypertension, CCB hyperlipidemi statin Prediabetes, metformin, ADA diet, Mood disorder, Abilify/SSRI consultations Spoke again with Dr Hutton, informed him if patient condition, will start on empirical Rocephin for now. If positive likely will needs PICC Line and ID c/s.
[2019-09-09] MEDS ORDERED: Lidocaine 2% with EPINEPHrine 1:200,000 20 ML SDV SUBCUT ONE (11:25)
[2019-09-09] MEDS: amLODIPine 5 MG Tab PO SCH (11:35)
[2019-09-09] MEDS: Acetaminophen/HYDROcodone 325-5 MG Tab PO PRN (20:36)
[2019-09-09] MEDS: atorvaSTATin 10 MG Tab PO SCH (20:36)
[2019-09-09] MEDS: ClonazePAM 0.5 MG Tab PO PRN (20:36)
[2019-09-09] MEDS: Bisacodyl 5 MG Tab PO PRN (20:38)
[2019-09-10] MEDS: Aspirin 81 MG Tab.EC PO SCH (09:57)
[2019-09-10] MEDS: amLODIPine 5 MG Tab PO SCH (09:57)
[2019-09-10] MEDS: ARIPiprazole 5 MG Tab PO SCH (09:57)
[2019-09-10] MEDS: Escitalopram 10 MG Tab PO SCH (09:57)
[2019-09-10] MEDS: metFORMIN 500 MG Tab PO SCH (09:58)
[2019-09-10] MEDS ORDERED: cefTRIAXone 1 GM Vial IM SCH (10:30)
[2019-09-10] MEDS: atorvaSTATin 10 MG Tab PO SCH (20:37)
[2019-09-10] MEDS: ClonazePAM 0.5 MG Tab PO PRN (20:37)
[2019-09-10] MEDS: Acetaminophen/HYDROcodone 325-5 MG Tab PO PRN (20:38)
[2019-09-11] MEDS: ARIPiprazole 5 MG Tab PO SCH (09:03)
[2019-09-11] MEDS: metFORMIN 500 MG Tab PO SCH (09:03)
[2019-09-11] MEDS: Escitalopram 10 MG Tab PO SCH (09:03)
[2019-09-11] MEDS: Aspirin 81 MG Tab.EC PO SCH (09:03)
[2019-09-11] MEDS: amLODIPine 5 MG Tab PO SCH (09:04)
[2019-09-11] MEDS: Magnesium Hydroxide 400 MG/5 ML Susp 30 ML Cup PO PRN (09:04)
[2019-09-11] MEDS: Acetaminophen/HYDROcodone 325-5 MG Tab PO PRN ×2 (10:22→21:22)
[2019-09-11] MEDS: cefTRIAXone 1 GM Vial IV SCH (11:13)
[2019-09-11] MEDS: ClonazePAM 0.5 MG Tab PO PRN (21:22)
[2019-09-11] MEDS: atorvaSTATin 10 MG Tab PO SCH (21:23)
[2019-09-12] MEDS: ARIPiprazole 5 MG Tab PO SCH (08:23)
[2019-09-12] MEDS: Aspirin 81 MG Tab.EC PO SCH (08:23)
[2019-09-12] MEDS: metFORMIN 500 MG Tab PO SCH (08:23)
[2019-09-12] MEDS: Escitalopram 10 MG Tab PO SCH (08:23)
[2019-09-12] MEDS: amLODIPine 5 MG Tab PO SCH (08:24)
[2019-09-12] MEDS: cefTRIAXone 1 GM Vial IV SCH (08:58)
[2019-09-12] MEDS: Acetaminophen/HYDROcodone 325-5 MG Tab PO PRN ×2 (09:34→20:42)
[2019-09-12] MEDS: atorvaSTATin 10 MG Tab PO SCH (20:26)
[2019-09-12] MEDS: ClonazePAM 0.5 MG Tab PO PRN (20:42)
[2019-09-12] MEDS: Magnesium Hydroxide 400 MG/5 ML Susp 30 ML Cup PO PRN (20:43)
[2019-09-13] MEDS: Aspirin 81 MG Tab.EC PO SCH (09:07)
[2019-09-13] MEDS: metFORMIN 500 MG Tab PO SCH (09:07)
[2019-09-13] MEDS: Escitalopram 10 MG Tab PO SCH (09:07)
[2019-09-13] MEDS: ARIPiprazole 5 MG Tab PO SCH (09:07)
[2019-09-13] MEDS: amLODIPine 5 MG Tab PO SCH (09:08)
[2019-09-13] MEDS: cefTRIAXone 1 GM Vial IV SCH (09:08)
[2019-09-13] MEDS: Acetaminophen/HYDROcodone 325-5 MG Tab PO PRN (21:16)
[2019-09-13] MEDS: atorvaSTATin 10 MG Tab PO SCH (21:16)
[2019-09-13] MEDS: ClonazePAM 0.5 MG Tab PO PRN (21:16)
[2019-09-13] MEDS: Magnesium Hydroxide 400 MG/5 ML Susp 30 ML Cup PO PRN (21:17)
[2019-09-14] MEDS: metFORMIN 500 MG Tab PO SCH (08:47)
[2019-09-14] MEDS: Aspirin 81 MG Tab.EC PO SCH (08:47)
[2019-09-14] MEDS: amLODIPine 5 MG Tab PO SCH (08:47)
[2019-09-14] MEDS: ARIPiprazole 5 MG Tab PO SCH (08:47)
[2019-09-14] MEDS: Escitalopram 10 MG Tab PO SCH (08:47)
[2019-09-14] MEDS: Bisacodyl 5 MG Tab PO PRN (08:48)
[2019-09-14] MEDS: cefTRIAXone 1 GM Vial IV SCH (09:52)
[2019-09-14] MEDS: Magnesium Hydroxide 400 MG/5 ML Susp 30 ML Cup PO PRN (14:41)
[2019-09-14] MEDS: atorvaSTATin 10 MG Tab PO SCH (20:55)
[2019-09-14] MEDS: Acetaminophen/HYDROcodone 325-5 MG Tab PO PRN (20:55)
[2019-09-14] MEDS: ClonazePAM 0.5 MG Tab PO PRN (20:55)
[2019-09-15] MEDS: metFORMIN 500 MG Tab PO SCH (09:06)
[2019-09-15] MEDS: ARIPiprazole 5 MG Tab PO SCH (09:06)
[2019-09-15] MEDS: Aspirin 81 MG Tab.EC PO SCH (09:07)
[2019-09-15] MEDS: Escitalopram 10 MG Tab PO SCH (09:07)
[2019-09-15] MEDS: Acetaminophen 500 MG Tab PO PRN ×2 (09:11→21:46)
[2019-09-15] MEDS: amLODIPine 5 MG Tab PO SCH (09:11)
[2019-09-15] MEDS: cefTRIAXone 1 GM Vial IV SCH (09:13)
[2019-09-15] MEDS ORDERED: Magnesium Hydroxide 400 MG/5 ML Susp 30 ML Cup PO SCH (09:30)
[2019-09-15] MEDS: atorvaSTATin 10 MG Tab PO SCH (21:46)
[2019-09-15] MEDS: ClonazePAM 0.5 MG Tab PO PRN (21:56)
[2019-09-16] MEDS: Escitalopram 10 MG Tab PO SCH (08:42)
[2019-09-16] MEDS: amLODIPine 5 MG Tab PO SCH (08:42)
[2019-09-16] MEDS: ARIPiprazole 5 MG Tab PO SCH (08:42)
[2019-09-16] MEDS: Aspirin 81 MG Tab.EC PO SCH (08:42)
[2019-09-16] MEDS: metFORMIN 500 MG Tab PO SCH (08:42)
[2019-09-16] MEDS: cefTRIAXone 1 GM Vial IV SCH (09:24)
[2019-09-16] MEDS: atorvaSTATin 10 MG Tab PO SCH (20:01)
[2019-09-16] MEDS: ClonazePAM 0.5 MG Tab PO PRN (20:02)
[2019-09-16] MEDS: Acetaminophen/HYDROcodone 325-5 MG Tab PO PRN (20:02)
[2019-09-17] MEDS: Escitalopram 10 MG Tab PO SCH (08:57)
[2019-09-17] MEDS: ARIPiprazole 5 MG Tab PO SCH (08:57)
[2019-09-17] MEDS: Aspirin 81 MG Tab.EC PO SCH (08:57)
[2019-09-17] MEDS: metFORMIN 500 MG Tab PO SCH (08:57)
[2019-09-17] MEDS: amLODIPine 5 MG Tab PO SCH (08:58)
[2019-09-17] MEDS: Magnesium Hydroxide 400 MG/5 ML Susp 30 ML Cup PO SCH (09:03)
[2019-09-17] MEDS ORDERED: Lidocaine 1% with EPINEPHrine 1:100,000 20 ML MDV INJECT ONE (10:30)
--- NOTE | 2019-09-17 10:55 | PCM.PRNOTE ---
- Free Text/Narrative Note: Brief history 63-year-old gentleman who is doing well in a swing bed status here at [facility] status post spinal fusion DOS 08/[address] Preston Garcia , ongoing TLSO brace and has been having spontaneous intermittent seroma development inferior wound. no wound dehiscence. and is in need of serial taps developing seroma to his lower part of his incision site lumbar area. Previous taps have shown no growth no organisms seen. He did have a urinary tract infection and was placed on antibiotics his white count is now normal. Patient is stable. No fevers. Fluid from serial taps have looked reddish in color with no purulent cloudiness noted. First to previous taps returned only 30 mL of fluid however today 80 mL fluid returned. First initial ultrasound demonstrated 16 x 37 x 19 mm anechoic area consistent with seroma. Images and report sent to surgical team [facility] Dr Hutton with recommendations of serial tap/drainage if needed. Written consent obtained from patient Patient was prepped sterilely with Chloraprep 025 mL's lidocaine with epinephrine localize 80 mL of reddish, No pus noted fluid liquid removed without complication, sent to lab Pressure bandage applied Patient tolerated procedure well Overall plan Anticipate discharge to home health nursing PT September 22. May need serial taps in the clinic Follow-up with neurosurgeon approximate 3 weeks. Monitor for signs and symptoms of infection.
[2019-09-17] MEDS: atorvaSTATin 10 MG Tab PO SCH (21:10)
[2019-09-17] MEDS: Acetaminophen/HYDROcodone 325-5 MG Tab PO PRN (21:10)
[2019-09-17] MEDS: ClonazePAM 0.5 MG Tab PO PRN (21:11)
[2019-09-18] MEDS: Escitalopram 10 MG Tab PO SCH (08:06)
[2019-09-18] MEDS: Aspirin 81 MG Tab.EC PO SCH (08:06)
[2019-09-18] MEDS: metFORMIN 500 MG Tab PO SCH (08:07)
[2019-09-18] MEDS: ARIPiprazole 5 MG Tab PO SCH (08:07)
[2019-09-18] MEDS: amLODIPine 5 MG Tab PO SCH (08:07)
[2019-09-18] MEDS: Bisacodyl 5 MG Tab PO PRN (08:11)
[2019-09-18] MEDS: atorvaSTATin 10 MG Tab PO SCH (20:54)
[2019-09-18] MEDS: ClonazePAM 0.5 MG Tab PO PRN (20:57)
[2019-09-19] MEDS: Bisacodyl 5 MG Tab PO PRN (06:21)
[2019-09-19] MEDS: Escitalopram 10 MG Tab PO SCH (09:28)
[2019-09-19] MEDS: metFORMIN 500 MG Tab PO SCH (09:29)
[2019-09-19] MEDS: Aspirin 81 MG Tab.EC PO SCH (09:29)
[2019-09-19] MEDS: ARIPiprazole 5 MG Tab PO SCH (09:29)
[2019-09-19] MEDS: amLODIPine 5 MG Tab PO SCH (09:30)
[2019-09-19] MEDS ORDERED: Magnesium Hydroxide 400 MG/5 ML Susp 30 ML Cup ONE (09:34)
[2019-09-19] MEDS ORDERED: Magnesium Hydroxide 400 MG/5 ML Susp 30 ML Cup PO ONE (10:40)
[2019-09-19] MEDS: atorvaSTATin 10 MG Tab PO SCH (21:20)
[2019-09-20] MEDS: ClonazePAM 0.5 MG Tab PO PRN ×2 (01:19→21:59)
[2019-09-20] MEDS: Acetaminophen/HYDROcodone 325-5 MG Tab PO PRN (01:19)
[2019-09-20] MEDS: Aspirin 81 MG Tab.EC PO SCH (08:10)
[2019-09-20] MEDS: ARIPiprazole 5 MG Tab PO SCH (08:10)
[2019-09-20] MEDS: amLODIPine 5 MG Tab PO SCH (08:10)
[2019-09-20] MEDS: Escitalopram 10 MG Tab PO SCH (08:10)
[2019-09-20] MEDS: metFORMIN 500 MG Tab PO SCH (08:10)
[2019-09-20] MEDS: Magnesium Hydroxide 400 MG/5 ML Susp 30 ML Cup PO SCH (08:13)
[2019-09-20] MEDS: atorvaSTATin 10 MG Tab PO SCH (21:59)
[2019-09-21] MEDS: Acetaminophen 500 MG Tab PO PRN ×2 (01:37→23:45)
[2019-09-21] MEDS: Magnesium Hydroxide 400 MG/5 ML Susp 30 ML Cup PO SCH (08:25)
[2019-09-21] MEDS: ARIPiprazole 5 MG Tab PO SCH (08:26)
[2019-09-21] MEDS: Escitalopram 10 MG Tab PO SCH (08:26)
[2019-09-21] MEDS: metFORMIN 500 MG Tab PO SCH (08:27)
[2019-09-21] MEDS: Aspirin 81 MG Tab.EC PO SCH (08:27)
[2019-09-21] MEDS: amLODIPine 5 MG Tab PO SCH (08:27)
[2019-09-21] MEDS: atorvaSTATin 10 MG Tab PO SCH (21:02)
[2019-09-21] MEDS: ClonazePAM 0.5 MG Tab PO PRN (23:45)
[2019-09-22] MEDS: Escitalopram 10 MG Tab PO SCH (08:49)
[2019-09-22] MEDS: Magnesium Hydroxide 400 MG/5 ML Susp 30 ML Cup PO SCH (08:49)
[2019-09-22] MEDS: amLODIPine 5 MG Tab PO SCH (08:49)
[2019-09-22] MEDS: Aspirin 81 MG Tab.EC PO SCH (08:49)
[2019-09-22] MEDS: metFORMIN 500 MG Tab PO SCH (08:49)
[2019-09-22] MEDS: ARIPiprazole 5 MG Tab PO SCH (08:50)
--- NOTE | 2019-09-22 09:27 | PCM.DCSUM1 ---
Discharge Summary - Hospital Course Free Text/Narrative:: Date of admission: 08/15/19 Date of discharge: 09/22/19 Admission diagnoses: # Deconditioning/debility # S/p spinal fusion # Anemia, postoperative # HTN # Constipation # Prediabetes # HLD # Chronic pain # Mood disorder Discharge diagnoses: # Deconditioning/debility # S/p spinal fusion # Anemia, postoperative # Seroma, incisional, postoperative # UTI, resolved # HTN # Constipation # Prediabetes # HLD # Chronic pain # Mood disorder Consultations: Neurosurgery team in [facility] (see hospital course for details) Procedures: Seroma drainage: 10/06/19, 10/10/19, and 10/18/19 Hospital course: 63yoM who was admitted to swing bed status for rehabilitation at [facility] s/p spinal fusion on 08/11/[address] Preston Garcia at [facility]. Physical therapy was consulted and he progressed well with mobility while ongoing use of the TLSO brace. A notable occurrence during his stay was the spontaneous intermittent seroma development of the surgical wound site without wound dehiscence. Initial ultrasound demonstrated 16 x 37 x 19 mm anechoic area consistent with seroma. Images and report were sent to the [facility] surgical team and Dr. Hutton recommended serial drainage as needed, which was performed on 10/06 (30mL), (30mL), and 10/18 (80mL). Fluid has been without cloudiness or purulence and microbiology studies have shown no growth. Also during his stay, he did develop a fever, for which comprehensive evaluation with serum labs, UA, and CXR was consistent with UTI. Urine culture grew Klebsiella and he had resolution of leukocytosis and fever with course of antibiotic, initially with ceftriaxone. He was continued on his outpatient regimen of medications for HTN, pre-diabetes , HLD, and mood disorder. Medications for pain and constipation were titrated throughout his stay. He was deemed ready for discharge to home with home services as detailed below. Discharge and follow-up recommendations: - Discharge to home with home health nursing, PT, and OT (see Face to Face documentation below) - Medications at discharge by problem: - HTN: amlodipine 5mg po daily - Constipation: Senna-docusate 1 tab po BID, milk of magnesia 30mL po daily, bisacodyl 5-10mg po daily prn - Prediabetes: metformin 500mg po daily - HLD: atorvastatin 20mg po daily, ASA 81mg po daily - Chronic pain: meloxicam 15mg po daily (and omeprazole 20mg po daily for GI protection), Tylenol prn to max of 3000mg daily - Mood disorder: escitalopram 20mg po daily, aripiprazole 5mg po daily, clonazepam 0.5mg po bedtime prn - Follow-up tomorrow with Guillermo Olivarez APRN-[employer], at [facility], at which point repeat seroma drainage can be considered - Follow-up on 10/07/19 with neurosurgery team at [facility], as scheduled - Recommend recheck of CBC in the near future to reassess hemoglobin - Recommend recheck of A1c in 3mos at which time can reassess ongoing need for metformin - As pain improves, consider discontinuation of meloxicam (and omeprazole) - Discharge Data Discharge Date: 09/22/19 Discharge Disposition: Home, W Home Health Agency 06 Condition: Good - Referral to Home Health Date of Face to Face Encounter: 09/22/19 Reason for Homebound Status: This is the Order & Face to Face Encounter for home health services to include: Nursing, Physical Therapy, Occupational therapy. Clinical findings to support the need for home health: In home safety assessment/instruction. Strength and endurance. Wound care and assessment. Support for home bound status: Limited or decreased strength/ endurance due to fatigue, pain, muscle weakness. Unsteady gait with use of walker and poor balance. Risk for infection of incision site Primary Care Physician: Franco Holbrook MD Skilled Need: See above. - Patient Summary/Data Consults: Consultations 08/15/19 14:26 PT Evaluation and Treatment [CONS] Routine 09/15/19 09:25 Consult to [employer] [CONS] Routine - Patient Instructions Diet: Usual Diet as Tolerated Activity: As Tolerated (with brace) Showering/Bathing: May Shower Wound/Incision Care: Keep Operative Site/Wound Site Clean and Dry, Change Dressing Daily Notify Provider of: Fever, Increased Pain, Swelling and Redness, Drainage, Nausea and/or Vomiting - Discharge Plan *PRESCRIPTION DRUG MONITORING PROGRAM REVIEWED*: Not Applicable *COPY OF PRESCRIPTION DRUG MONITORING REPORT IN PATIENT DASHA: Not Applicable Prescriptions/Med Rec: amLODIPine [Norvasc] 5 mg PO DAILY #30 tablet Nystatin [Nystatin Crm] 30 gm TOP BID 7 Days #1 tube Omeprazole 20 mg PO DAILY #[address] capsule[address] Thompson/Docusate Sodium [Senna Plus 8.6-50 mg Tablet] 1 each PO BID #60 tablet Home Medications: Home Meds ARIPiprazole [Abilify] 5 mg PO DAILY 04/11/19 [History] Aspirin [Halfprin] 81 mg PO DAILY 04/11/19 [History] ClonazePAM [KlonoPIN] 0.5 mg PO BEDTIME PRN 04/11/19 [History] Escitalopram [Lexapro] 20 mg PO DAILY 04/11/19 [History] Meloxicam [Mobic] 15 mg PO DAILY 04/11/19 [History] atorvaSTATin [Lipitor] 20 mg PO BEDTIME 04/11/19 [History] metFORMIN [Glucophage] 500 mg PO DAILY 04/11/19 [History] Acetaminophen 1,000 mg PO Q8H PRN #50 tab 09/22/19 [Rx] Bisacodyl [Dulcolax] 5 - 10 mg PO DAILY PRN tablet 09/22/19 [Rx] Magnesium Hydroxide [Milk of Magnesia] 30 ml PO DAILY cup 09/22/19 [Rx] Nystatin [Nystatin Crm] 30 gm TOP BID 7 Days #1 tube 09/22/19 [Rx] Omeprazole 20 mg PO DAILY #30 capsule. 09/22/19 [Rx] Sennosides/Docusate Sodium [Senna Plus 8.6-50 mg Tablet] 1 each PO BID #60 tablet 09/22/19 [Rx] amLODIPine [Norvasc] 5 mg PO DAILY #30 tablet 09/22/19 [Rx] Referrals: [facility] [place] [Outside] Guillermo Olivarez NP [Nurse Practitioner] - 09/23/19 3:30 pm - Discharge Summary/Plan Comment DC Time >30 min.: Yes - General Info Admission Dx/Problem (Free Text: Mr. Aguilar denies any complaints today. Getting around well, much improved from admission, with use of walker, while wearing TLSO brace. Feels comfortable with plan to have home health services. Went on a pass yesterday and did well. Only nursing concern is mild red rash in the L inner thigh fold. - Patient Data Vitals - Most Recent: Last Vital Signs Temp 36.7 C 09/22/19 06:24 Pulse 57 L 09/22/19 06:24 Resp 18 09/22/19 06:24 BP 108/70 09/22/19 08:49 Pulse Ox 97 09/22/19 06:24 Weight - Most Recent: 80.853 kg I&O - Last 24 hours: Intake & Output 09/21/19 09/22/19 09/22/19 22:59 06:59 14:59 Intake Total 540 700 Balance 540 700 WIL Results - Last 24 hrs: Microbiology 09/17/19 10:45 Aerobic Culture - Preliminary Fluid Gram Stain - Final Med Orders - Current: Current Medications Acetaminophen (Tylenol Extra Strength) 1,000 mg PO Q4HR PRN PRN Reason: Pain Last Admin: 09/21/19 23:45 Dose: 1,000 mg Amlodipine Besylate (Norvasc) 5 mg PO DAILY [facility] Last Admin: 09/22/19 08:49 Dose: 5 mg Aripiprazole (Abilify) 5 mg PO DAILY [facility] Last Admin: 09/22/19 08:50 Dose: 5 mg Aspirin (Halfprin) 81 mg PO DAILY [facility] Last Admin: 09/22/19 08:49 Dose: 81 mg Atorvastatin Calcium (Lipitor) 20 mg PO BEDTIME [facility] Last Admin: 09/21/19 21:02 Dose: 20 mg Bisacodyl (Dulcolax) 5 - 10 mg PO DAILY PRN PRN Reason: Constipation Last Admin: 09/19/19 06:21 Dose: 10 mg Clonazepam (Klonopin) 0.5 mg PO BEDTIME PRN PRN Reason: Anxiety Last Admin: 09/21/19 23:45 Dose: 0.5 mg Escitalopram Oxalate (Lexapro) 20 mg PO DAILY [facility] Last Admin: 09/22/19 08:49 Dose: 20 mg Magnesium Hydroxide (Milk Of Magnesia) 30 ml PO DAILY [facility] Last Admin: 09/22/19 08:49 Dose: 30 ml Meloxicam (Mobic) 15 mg PO DAILY [facility] Last Admin: 09/22/19 08:49 Dose: 15 mg Metformin HCl (Glucophage) 500 mg PO DAILY [facility] Last Admin: 09/22/19 08:49 Dose: 500 mg Senna/Docusate Sodium (Senna Plus) 1 tab PO BID [facility] Last Admin: 09/22/19 08:49 Dose: 1 tab Sodium Chloride ([place] Nasal [place]) 0 ml JERRICA QID PRN PRN Reason: Nasal Dryness Last Admin: 08/25/19 21:43 Dose: 1 spray Discontinued Medications Hydrocodone Bitart/Acetaminophen ([place] 325-5 Mg) 1 tab PO Q4H PRN PRN Reason: Pain (severe 7-10) Last Admin: 09/20/19 01:19 Dose: 1 tab Amlodipine Besylate (Norvasc) 10 mg PO DAILY [facility] Last Admin: 08/21/19 10:00 Dose: Not Given Ceftriaxone Sodium (Rocephin) 1 gm IM DAILY ONE Stop: 09/09/19 10:27 Last Admin: 09/09/19 10:15 Dose: 1 gm Ceftriaxone Sodium (Rocephin) 1 gm IM Q24H [facility] Last Admin: 09/10/19 09:56 Dose: 1 gm Ceftriaxone Sodium (Rocephin) 1 gm IV Q24H JIMMIE Stop: 09/16/19 23:00 Last Admin: 09/16/19 09:24 Dose: 1 gm Influenza Virus Vaccine (Fluzone Quad [id number] Syringe) 60 mcg IM .ONCE ONE Stop: 09/03/19 14:40 Last Admin: 09/03/19 14:44 Dose: 60 mcg Lidocaine/Epinephrine (Xylocaine 1% With Epinephrine 1:100,000) 1 ml INJECT ONETIME ONE Stop: 09/05/19 10:25 Last Admin: 09/05/19 08:30 Dose: 1 ml Lidocaine/Epinephrine (Xylocaine-Mpf 2%-Epi 1:200,000) 2 ml SUBCUT ONETIME ONE Stop: 09/09/19 11:26 Last Admin: 09/09/19 10:30 Dose: 2 ml Lidocaine/Epinephrine (Xylocaine 1% With Epinephrine 1:100,000) 1 ml INJECT ONETIME ONE Stop: 09/17/19 10:31 Last Admin: 09/17/19 12:26 Dose: 1 ml Magnesium Hydroxide (Milk Of Magnesia) 30 ml PO DAILY PRN PRN Reason: Constipation Last Admin: 09/14/19 14:41 Dose: 30 ml Magnesium Hydroxide (Milk Of Magnesia) 30 ml PO Q72H [facility] Last Admin: 09/15/19 11:29 Dose: Not Given Magnesium Hydroxide (Milk Of Magnesia) 30 ml PO Q72H JIMMIE Last Admin: 09/20/19 08:13 Dose: 30 ml Magnesium Hydroxide (Milk Of Magnesia) Confirm Administered Dose 30 ml .ROUTE .STK-MED ONE Stop: 09/19/19 09:35 Last Admin: 09/19/19 10:41 Dose: Not Given Magnesium Hydroxide (Milk Of Magnesia) 30 ml PO ONETIME ONE Stop: 09/19/19 10:41 Last Admin: 09/19/19 10:40 Dose: 30 ml Tramadol HCl (Ultram) 50 mg PO ONETIME ONE Stop: 08/15/19 15:44 Last Admin: 08/15/19 15:56 Dose: 50 mg Tramadol HCl (Ultram) 50 mg PO BID PRN PRN Reason: Pain Last Admin: 08/17/19 09:19 Dose: 50 mg - Exam Physical Findings Comments:: GENERAL: Well-appearing adult male sitting in bedside chair in no acute distress. HEENT: Normocephalic, atraumatic. Conjunctiva clear. Nares patent without discharge. Mucous membranes moist. NECK: Supple, no masses. CV: Regular rate and rhythm, no murmurs, rubs, or gallops. 2+ radial pulses. PULMONARY: Normal effort, clear to auscultation bilaterally, no wheezes, rales, or rhonchi. ABDOMEN: Not examined due to TLSO brace in place. EXTREMITIES: No edema, cyanosis, or clubbing. MUSCULOSKELETAL: Moves all extremities well. NEUROLOGICAL: No obvious deficits. DERMATOLOGIC: No rashes or suspicious lesions in exposed areas. Would not evaluated by myself today due to TLSO brace in place. PSYCHIATRIC: Alert, interactive, appropriate affect.
== END 2019-09-22 12:40 | disposition home health service (06) | DRG 948 ==
LOC: KA.MS 14:10 → UNDOADMIN 14:16
PROVIDERS: ADMIT Nurse Practitioner Family; ATTEND Nurse Practitioner Family
PROC: 009U3ZZ Drainage of Spinal Canal, Percutaneous Approach (ICD-10-PCS; principal; 2019-09-05)
PROC: 009U3ZZ Drainage of Spinal Canal, Percutaneous Approach (ICD-10-PCS; 2019-09-09)
PROC: 009U3ZZ Drainage of Spinal Canal, Percutaneous Approach (ICD-10-PCS; 2019-09-17)
DX: R53.81 Other malaise (principal); G97.63 Postprocedural seroma of a nervous system organ or structure following a nervous system procedure; N39.0 Urinary tract infection, site not specified; B96.1 Klebsiella pneumoniae [K. pneumoniae] as the cause of diseases classified elsewhere; G89.29 Other chronic pain; F39 Unspecified mood [affective] disorder; R73.03 Prediabetes; D64.9 Anemia, unspecified; K59.00 Constipation, unspecified; I10 Essential (primary) hypertension; E78.5 Hyperlipidemia, unspecified; Z88.6 Allergy status to analgesic agent; Z79.899 Other long term (current) drug therapy
CPT/HCPCS: 36415; 71045; 76705; 76999; 80048; 81001; 83605; 85007; 85025; 85027; 85651; 87040; 87070; 87075; 87086; 87088; 87186; 87205; 90686; 97110-GP; 97161-GP; 97530-GP; 97537-GP; A9270-GY; G0283-GP; J0696

== ENCOUNTER 2021-12-06 08:58 | Emergency (ER) | payer MEDICARE, MEDICAID ==
[2021-12-06] MEDS ORDERED: Sodium Phosphate,Monobasic/Sodium Phosphate,Dibasic Enema 133 ML Bottle RECTAL ONE (09:30)
== END 2021-12-06 10:40 | disposition home or self-care (01) ==
LOC: KA.ED 08:58
DX: K59.01 Slow transit constipation (principal); Z88.8 Allergy status to other drugs, medicaments and biological substances; Z79.82 Long term (current) use of aspirin; Z79.899 Other long term (current) drug therapy
CPT/HCPCS: 74018; 99283-25

== ENCOUNTER 2022-05-10 08:45 | Day surgery (SDC) | payer MEDICARE, MEDICAID ==
[2022-05-10] MEDS ORDERED: Propofol 200 MG/20 ML SDV IV ONE (08:46)
[2022-05-10] MEDS ORDERED: Sodium Chloride 0.9% 10 ML Syringe FLUSH PRN (09:00)
[2022-05-10] MEDS: Sodium Chloride 0.9% 1,000 ML IV SCH (09:39)
[2022-05-10] MEDS ORDERED: Midazolam 1 MG/ML 2 ML SDV ONE (10:10)
[2022-05-10] MEDS ORDERED: Propofol 200 MG/20 ML SDV ONE ×3 (10:10→10:46)
[2022-05-10] MEDS: Albuterol 0.083% 2.5 MG/3 ML Neb Soln NEB ONE (11:22)
== END 2022-05-10 12:50 | disposition home or self-care (01) ==
LOC: KA.SDS 08:45
PROVIDERS: ATTEND Family Medicine
DX: K59.09 Other constipation (principal); R19.4 Change in bowel habit; I10 Essential (primary) hypertension; E78.00 Pure hypercholesterolemia, unspecified; Z88.6 Allergy status to analgesic agent; Z79.899 Other long term (current) drug therapy
CPT/HCPCS: J2250; J2704; J7030; J7613-GY